=== PATIENT | female | born 1990 ===

== ENCOUNTER → 2017-10-01 14:49 | Outpatient (CLI) | payer OTHER ==
[~2017-10-01] VITALS: Ht 121.9 cm; Wt 76.7 kg
[~2017-10-01 14:49] MED LIST: DICY20TA PO; FLONASE16 GM NS; PHENERGAN25 MG PO; PRILOSEC40 MG PO; SINGULAIR10 MG PO; TESSALON PERLE100 MG PO; ZANTAC300 MG PO; ZITHROMAX200 MG PO; ZITHROMAX500 MG PO; ZYRTEC10 MG PO
== END | disposition home or self-care (01) ==
LOC: PPHC 14:49
DX: R10.13 Epigastric pain (principal)

== ENCOUNTER 2017-10-10 09:54 | Outpatient (CLI) | payer OTHER | END 2017-10-10 09:57 | disposition home or self-care (01) | LOC: SONOGRAMA 09:54 | DX: R30.0 Dysuria (principal) ==

== ENCOUNTER → 2017-10-15 | Outpatient (CLI) | payer OTHER ==
[~2017-10-15] VITALS: Ht 121.9 cm; Wt 72.6 kg
== END | disposition home or self-care (01) ==
LOC: PPHC 16:46
DX: Z02.79 Encounter for issue of other medical certificate (principal)

== ENCOUNTER 2018-02-02 17:41 | Outpatient (CLI) | payer OTHER | END 2018-02-02 17:49 | disposition home or self-care (01) | LOC: LAB 17:41 | DX: E66.9 Obesity, unspecified (principal); N91.1 Secondary amenorrhea ==

== ENCOUNTER 2018-03-12 07:23 | Outpatient (CLI) | payer OTHER | END 2018-03-12 07:25 | disposition home or self-care (01) | LOC: LAB 07:23 | DX: E28.2 Polycystic ovarian syndrome (principal) ==

== ENCOUNTER 2019-07-01 13:20 | Outpatient (CLI) | payer OTHER | END 2019-07-01 15:20 | disposition home or self-care (01) | LOC: LAB 13:20 | DX: R10.84 Generalized abdominal pain (principal); J06.9 Acute upper respiratory infection, unspecified ==

== ENCOUNTER 2019-10-12 07:13 | Outpatient (CLI) | payer OTHER | END 2019-10-12 07:20 | disposition home or self-care (01) | LOC: LAB 07:13 | DX: E03.8 Other specified hypothyroidism (principal); E78.2 Mixed hyperlipidemia; E11.9 Type 2 diabetes mellitus without complications ==

== ENCOUNTER 2019-10-12 07:40 | Outpatient (CLI) | payer OTHER | END 2019-10-12 07:42 | disposition home or self-care (01) | LOC: SONOGRAMA 07:40 | DX: R10.2 Pelvic and perineal pain (principal) ==